=== PATIENT | male | born 1980 | race Caucasian/White ===

== ENCOUNTER 2023-03-30 14:32 | Emergency (ER) | payer SELFPAY ==
--- NOTE | ~2023-03-30 | XR_ITS ---
EXAMINATION: XR chest 2V Exam Date/Time: 03/30/2023 15:55 CDT HISTORY: Cough, hx childhood asthma Comparison: None. RESULT: Lines, tubes, and devices: None. Lungs and pleura: Clear. Cardiomediastinal silhouette: Normal. Other: No acute osseous or upper abdominal finding. IMPRESSION: No acute cardiopulmonary process. Reviewed, dictated and finalized at location K.
[2023-03-30 14:39] VITALS: BP 152/88; PULSE 75; RESP 18; TEMP 36.7; O2SAT 100
[2023-03-30 15:25] VITALS: PULSE 85; RESP 18
[2023-03-30] MEDS: IPRATROPIUM BR 0.02% INH SOLN 0.5 MG/2.5 ML VIAL INHALATION (15:28)
[2023-03-30] MEDS: ALBUTEROL SULFATE NEB 2.5 MG/3 ML INH INHALATION (15:28)
[2023-03-30 15:35] VITALS: PULSE 87; RESP 18
--- NOTE | 2023-03-30 15:35 | ED.ASTHMA ---
HPI - Asthma General Chief Complaint: Asthma Stated Complaint: COUGH,CONGESTION Time Seen by Provider: 03/30/23 15:12 History of Present Illness HPI Narrative: 43-year-old male with a remote history of asthma as a child reports for evaluation for concern for asthma. 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 He also states that his allergies have been acting up and he becomes congested and wheezes when he is now around cats, hamsters and while he works at the facility. He denies chest pain, history of VTE, hemoptysis, fever, abdominal pain, syncope, sore throat, otalgia. He states he has been using his girlfriends inhaler with improvement in symptoms. He is also been taking a antihistamine daily. Related Data Allergies Allergy/AdvReac Type Severity Reaction Status Date / Time No Known Allergies Allergy Verified 03/30/23 14:42 Review of Systems Review of Systems: CONSTITUTIONAL: Denies fever, chills EYES: Denies visual changes, redness, or discharge. ENT: See HPI CARDIOVASCULAR: Denies chest pain, palpitations, or edema. RESPIRATORY: Denies cough or dyspnea. GASTROINTESTINAL: Denies abdominal pain, nausea, vomiting, or diarrhea. GENITOURINARY: Denies dysuria or hematuria. SKIN: Denies rash or itching. MUSCULOSKELETAL: Denies back pain, joint pain, or myalgia. NEUROLOGIC: Denies headache, numbness, dizziness, or weakness. PSYCHIATRIC: Denies anxiety or depression. Exam Narrative: GENERAL: Well-appearing, in no acute distress. Patient resting comfortably in exam bed. He is pleasant and conversational. Speaking in full sentences. Satting 100% on room air. HEAD: Normocephalic EYES: PERRLA ENT: Nares clear. Mucous membranes moist. Oropharynx without tonsillar hypertrophy exudate or other lesions. NECK: Supple. CHEST: No respiratory distress. Wheezing throughout all lung sunshine HEART: Regular rate and rhythm. No murmur heard. Normal peripheral pulses. ABDOMEN: Soft, nontender, normal active bowel sounds. EXTREMITIES: Normal range of motion. No edema. SKIN: Warm, dry, no rash. NEURO: No focal deficits. Alert and oriented x3. PSYCH: Normal mood and affect. Course Vital Signs Vital signs: Vital Signs Temperature 98.1 F 03/30/23 14:39 Pulse Rate 75 03/30/23 14:39 Respiratory Rate 18 03/30/23 14:39 Blood Pressure 152/88 H 03/30/23 14:39 Pulse Oximetry 100 03/30/23 14:39 Oxygen Delivery Room Air 03/30/23 14:39 Temperature 98.1 F 03/30/23 14:39 Pulse Rate 87 03/30/23 15:35 Respiratory Rate 18 03/30/23 15:35 Blood Pressure 152/88 H 03/30/23 14:39 Pulse Oximetry 100 03/30/23 14:39 Oxygen Delivery Room Air 03/30/23 15:01 MDM - Asthma MDM Narrative Medical decision making narrative: 43-year-old male with a remote history of asthma reports for evaluation for wheezing and allergy symptoms for the past months and starting a new job at a cannabis [employer]. See HPI for further history. Initial vitals reveal mildly elevated blood pressure, otherwise unremarkable. He is satting 100% on room air, no respiratory distress. He is well-appearing on exam. Exam significant for wheezing throughout all lung sunshine. CBC and chemistries are unremarkable. COVID and flu negative. Chest x-ray without acute cardiopulmonary abnormalities. EKG shows sinus rhythm, no signs of ischemic changes. Patient received a DuoNeb and 60 mg p.o. of prednisone with significant improvement. On reevaluation, wheezing has resolved. Symptoms seem secondary to asthma and allergies. Encouraged daily antihistamine and close PCP follow-up. Also advised patient to avoid triggers including smoking marijuana. Prednisone and albuterol inhaler sent to pharmacy. Strict ED return precautions discussed. He is agreeable with the plan verbalized understanding. Discharged in stable condition. Medical Records A
--- NOTE | 2023-03-30 15:38 | ECG_ITS ---
Measurements Intervals [place] Rate: 60 P: 44 MS: 137 QRS: 56 QRSD: 105 T: 39 QT: 402 QTc: 402 Interpretive Statements SINUS RHYTHM NORMAL ECG NO PREVIOUS ECG AVAILABLE FOR COMPARISON Electronically Signed On 03-31-2023 8:48:18 CDT by Neel Paez M.D.
[2023-03-30] MEDS: predniSONE 20 MG TABLET 60 MG PO (15:43)
[2023-03-30 16:11] LABS: Influenza A QL RT-PCR Negative (Negative); Influenza B QL RT-PCR Negative (Negative); SARS-CoV-2 RNA PCR Negative (Negative)
[2023-03-30 16:12] LABS: Basophils Absolute Auto 0.1 K/mm3 (0.0-0.1); Basophils Percent Auto 0.9 % (0.2-1.2); Eosinophils Absolute Auto 0.5 K/mm3 (0-0.3); Eosinophils Percent Auto 7.9 % (0-4.4); Hematocrit 47.6 % (42.0-52.0); Hemoglobin 15.6 g/dL (14.0-18.0); Immature Granulocyte Absolute 0.01 K/mm3 (0.00-0.031); Immature Granulocyte Percent A 0.1 % (0-0.5); Lymphocytes Absolute Auto 1.68 K/mm3 (0.9-3.2); Lymphocytes Percent Auto 24.6 % (18.3-44.2); Mean Corpuscular HGB Conc 32.8 g/dl (32-36); Mean Corpuscular Hemoglobin 30.2 pg (26-34); Mean Corpuscular Volume 92.2 fl (80-100); Mean Platelet Volume 9.6 fl (7.4-10.4); Monocytes Absolute Auto 0.7 K/mm3 (0.1-0.6); Monocytes Percent Auto 10.4 % (2.6-8.5); Neutrophils Absolute Auto 3.8 K/mm3 (1.3-6.7); Neutrophils Percent Auto 56.1 % (45.5-73.1); Platelet Count Result 274 k/mm3 (150-375); Red Blood Count 5.16 M/mm3 (4.6-6.20); Red Cell Distribution Width 12.7 % (11.5-14.5); White Blood Count 6.8 K/mm3 (4.5-10.0)
[2023-03-30 16:22] LABS: Alanine Aminotransferase 39 U/L (6-50); Alkaline Phosphatase 96 U/L (38-126); Anion Gap 9 mmol/L (8-16); Aspartate Amino Transferase 28 U/L (17-59); Bilirubin,Total 0.6 mg/dL (0.2-1.3); Blood Urea Nitrogen 13 mg/dL (9-20); Calcium 9.6 mg/dL (8.4-10.2); Carbon Dioxide 26 mmol/L (22-30); Chloride 105 mmol/L (98-107); Estimated CRCL calculation 109 ml/min; Estimated Glomerular Filt Rate > 60; Glucose 103 mg/dL (65-110); Magnesium 2.2 mg/dL (1.6-2.3); Potassium 4.2 mmol/L (3.4-5.0); Sodium 140 mmol/L (137-145)
[2023-03-30 17:20] VITALS: BP 152/85; PULSE 91; RESP 18; O2SAT 99
== END 2023-03-30 17:20 | disposition home or self-care (01) ==
PROVIDERS: Emergency Provider Physician Assistant
DX: R06.2 Wheezing (principal); Z20.822 Contact with and (suspected) exposure to COVID-19
CPT/HCPCS: 36415; 71046; 80053; 83735; 85025; 87636; 93005; 94640; 99283; J7512